=== PATIENT | male | born 1945 | race Two or more races ===

== ENCOUNTER → 2016-10-30 | Outpatient (CLI) | payer MEDICARE, MEDICAID ==
[~2016-10-30] MED LIST: JANUVIA25 MG ORAL; LISINOPRIL20 MG ORAL; METFORMIN HCL500 M1 ORAL; SIMVASTATIN10 MG ORAL; TRICOR145 MG ORAL; VITAMIN D1000 UNI1 ORAL
[2016-10-30 14:15] VITALS: BP 139/79
--- NOTE | 2016-10-30 21:27 | Consultation ---
DATE OF CONSULTATION: 10/30/2016 REFERRING PHYSICIAN: Lb Vasquez M.D. CHIEF COMPLAINT: Evaluation for screening colonoscopy evaluation and chronic GERD. HISTORY OF PRESENT ILLNESS: A very pleasant 71-year-old male with past medical history of hypertension, and diabetes was referred to us by Dr. Vasquez, apparently, the patient never had a colonoscopy at 71. The patient has some loose stools twice a day, but is most probably from his medication with chronic diabetes and no blood per rectum. No melena. The patient also had some acid reflux symptoms. PAST MEDICAL HISTORY: 1. Hypertension. 2. Hyperglycemia. 3. Diabetes. PAST SURGICAL HISTORY: knee surgery in 2013. MEDICATIONS: Please see medication reconciliation list. ALLERGIES: No known allergy. SOCIAL HISTORY: The patient denies any alcohol or IV drug abuse. He drinks coffee. Exercises regularly. PHYSICAL EXAMINATION: VITAL SIGNS: Temperature 97.9 degrees, blood pressure is 139/79, pulse 66, and respirations 20. HEENT: Normocephalic and atraumatic. Pale conjunctivae. Sclerae anitcteric. NECK: Supple. No lymphadenopathy. CARDIOVASCULAR: Regular rhythm. Plus S1 and S2. LUNGS: Clear breath sounds bilaterally. ABDOMEN: Bowel sounds are present. Soft and nontender. No rebound. No guarding. No peritoneal signs. EXTREMITIES: No cyanosis. No clubbing. No edema. ASSESSMENT AND PLAN: The patient is a 71-year-old male plan to do a screening colonoscopy. Also, we will plan to do endoscopy given chronic gastroesophageal reflux disease. PLAN: The patient was given instructions and prescriptions for the medication. The patient was explained the risks and benefits of procedure and he understood and agreed with plan for next week. I want to thank, Dr. Vasquez for this kind referral. Juan Marx M.D. DR: Kailey JOB#: [id number] CC:
== END | disposition home or self-care (01) ==
LOC: PAN 13:51
DX: I10 Essential (primary) hypertension (principal); E11.9 Type 2 diabetes mellitus without complications
CPT/HCPCS: 99201

== ENCOUNTER → 2016-11-21 | Day surgery (SDC) | payer MEDICARE, MEDICAID ==
[2016-11-21] VITALS (8 sets, daily range): BP systolic 126–143; BP diastolic 80–86
[~2016-11-21] VITALS: Ht 165.1 cm; Wt 61.2 kg
[~2016-11-21] MED LIST changes: +NS 550ML IV ONE; +Propofol 10mg/ml 20ml IV ONE
--- NOTE | 2016-11-21 09:38 | Pre-Procedure Note/Attestation ---
Pre-Procedure Note/Attestation Complete Prior to Procedure Planned Procedure: not applicable Procedure Narrative: egd/colon Indications for Procedure Pre-Operative Diagnosis: screening colon, GERD Attestation I attest that I discussed the nature of the procedure; its benefits; risks and complications; and alternatives (and the risks and benefits of such alternatives ), prior to the procedure, with the patient (or the patient's legal corporate sales representative). I attest that, if there was a reasonable possibility of needing a blood transfusion, the patient (or the patient's legal corporate sales representative) was given the [facility] standardized written summary, pursuant to the [place] Blood Safety Act ([place] Health and Safety Code # 1645, as amended). I attest that I re-evaluated the patient just prior to the surgery and that there has been no change in the patient's H&P, except as documented below: PEPE LIU Nov 21, 2016 09:38
--- NOTE | 2016-11-21 09:39 | Short Stay Surgery H&P ---
History of Present Illness History of Present Illness Chief Complaint see recent consult note HPI Raymundo Watts is a 71 year old male who was admitted on for Colon Screening,Gerd Medication History Scheduled Fenofibrate (Tricor), 145 MG ORAL DAILY, (Reported) Lisinopril (Lisinopril*), 20 MG ORAL DAILY, (Reported) Simvastatin (Zocor), Unknown Dose ORAL BEDTIME, (Reported) Sitagliptin* (Januvia*), 100 MG ORAL DAILY, (Reported) Plan Attestation Are the patient's medical conditions optimized for surgery? PEPE LIU Nov 21, 2016 09:39
--- NOTE | 2016-11-21 12:01 | Anethesia Preoperative Eval ---
Anesthesia Pre-op PMH/ROS General Date of Evaluation: Nov 21, 2016 Time of Evaluation: 11:43 Anesthesiologist: isabella ASA Score: ASA 3 Mallampati Score Class I : Soft palate, uvula, fauces, pillars visible Class II: Soft palate, uvula, fauces visible Class III: Soft palate, base of uvula visible Class IV: Only hard plate visible Mallampati Classification: Class II Surgeon: rylee Diagnosis: GERD/screening Surgical Procedure: egd/colonocopy Anesthesia History: none Allergies: Coded Allergies: No Known Allergies (Unverified , 11/21/16) Past Medical History Cardiovascular: Reports: HTN Gastrointestinal/Genitourinary: Reports: GERD Endocrine: Reports: DM Musculoskeletal/Integumentary: Reports: other - l. TKR Anesthesia Pre-op Phys. Exam Physician Exam Last Vital Signs Date Time Temp Pulse Resp B/P Pulse Ox O2 Delivery O2 Flow Rate FiO2 11/21/16 11:08 98.2 60 20 138/80 98 Room Air Airway Exam Mallampati Score: Class II Teeth: missing Anesthesia Pre-op A/P Risk Assessment & Plan Plan: propofol Status Change Before Surgery: Tyron Baker MD Nov 21, 2016 12:01
--- NOTE | 2016-11-21 12:02 | Immediate Post-Op Evaluation ---
Immediate Post-Op Evalulation Immediate Post-Op Evalulation Date of Evaluation: Nov 21, 2016 Time of Evaluation: 12:23 IV Fluids: 300 Blood Pressure Systolic: 130 Blood Pressure Diastolic: 81 Pulse Rate: 70 Respiratory Rate: 20 O2 Sat by Pulse Oximetry: 97 Temperature (Fahrenheit): 98 Pain Score (1-10): 0 Nausea: No Vomiting: No Complications none Patient Status: awake, patent, none Hydration Status: adequate Tyron Alfaro MD Nov 21, 2016 12:02
--- NOTE | 2016-11-21 12:03 | 48 Hour Post Anesthesia Eval ---
Post Anesthesia Evaluation Date of Evaluation: Nov 21, 2016 Time of Evaluation: 12:50 Blood Pressure Systolic: 134 0: 85 Pulse Rate: 55 Respiratory Rate: 16 Temperature (Fahrenheit): 98 O2 Sat by Pulse Oximetry: 99 Airway: patent Nausea: No Vomiting: No Pain Intensity: 0 Hydration Status: adequate Cardiopulmonary Status: stable Mental Status/LOC: patient returned to baseline Follow-up Care/Observations: n/a Post-Anesthesia Complications: tolerated well Follow-up care needed: ready to discharge Tyron Alfaro MD Nov 21, 2016 12:03
--- NOTE | 2016-11-21 12:11 | Endoscopy Procedure Note ---
Endoscopy Procedure Note Indication for Procedure: screening colon, GERD Procedures Performed: EGD, colonoscopy Operative Findings/Diagnosis: gastritis,hemorrhoids,3 polyps Specimen: yes Pt Tolerated Procedure Well: Yes Estimated Blood Loss: none Anesthesiologist: isabella Anesthesia: MAC Implant(s) used?: No 50 yrs or older w/o bx or poly: No 10yrs. F/U not recommended: Yes If not recommended, why?: Above average risk 10 yrs. F/U needed: Yes 18 years or older w/prev. colo: No PEPE LIU Nov 21, 2016 12:11
--- NOTE | 2016-11-21 19:59 | Procedure Note ---
DATE OF PROCEDURE: 11/21/2016 SURGEON: Juan Marx M.D. PROCEDURE: Upper endoscopy with biopsy and colonoscopy with biopsy and snare polypectomy. ANESTHESIOLOGIST: Tyron Alfaro M.D. INSTRUMENT: Olympus adult flexible upper endoscope and colonoscope. INDICATION: Screening colonoscopy evaluation and GERD. REASON FOR PROCEDURE: The procedure, risks, benefits, and possible consequences, including hemorrhage, aspiration, perforation and infection, and alternative treatments, were explained to the patient/legal guardian by Dr. Juan Marx and the patient/legal guardian understood and accepted these risks. DESCRIPTION OF PROCEDURE: After informed consent was obtained and the patient was adequately sedated, first Olympus upper endoscope was advanced from mouth into the second portion of duodenum and retroflexion was performed in the stomach. The patient had evidence of diffuse gastritis. Random biopsy from antrum of the stomach was obtained to rule out H. pylori infection. At this time, the upper endoscope was retrieved and the patient was turned over for colonoscopy. First, a rectal examination was performed, which was positive for internal hemorrhoid. Then, the scope was advanced from the rectum into the cecum and then subsequently into the terminal ileum. Quality of prep was very good. The patient had flat-looking terminal ileum mucosa. In the colon, there was total of three polyps. There was one large sessile polyp in the sigmoid colon, roughly measured about 1 cm, which was removed with the snare polypectomy technique. There were two diminutive polyps in the rectum area above the dentate line, which was removed with cold biopsy forceps technique. There was no further polyp seen. The patient had some evidence of scattered sigmoid diverticulosis. Retroflexion in the rectum showed evidence of large internal hemorrhoids. SUMMARY OF FINDINGS: 1. Gastritis, status post biopsy. 2. Total of three colonic polyps removed, see above for details. 3. Diverticulosis. 4. Internal hemorrhoids. RECOMMENDATIONS: 1. Follow up biopsies and treat accordingly. 2. Given three polyps and this large polyp in the sigmoid, we recommend repeat colonoscopy in three years. Juan Marx M.D. DR: GEORGE JOB#: [id number] CC:
== END | disposition home or self-care (01) ==
LOC: GAS 09:30
DX: Z12.11 Encounter for screening for malignant neoplasm of colon (principal); D12.5 Benign neoplasm of sigmoid colon; K62.1 Rectal polyp; K64.8 Other hemorrhoids; K57.30 Diverticulosis of large intestine without perforation or abscess without bleeding; K21.9 Gastro-esophageal reflux disease without esophagitis; K29.50 Unspecified chronic gastritis without bleeding; B96.81 Helicobacter pylori [H. pylori] as the cause of diseases classified elsewhere; I10 Essential (primary) hypertension; E11.9 Type 2 diabetes mellitus without complications; Z96.659 Presence of unspecified artificial knee joint
CPT/HCPCS: 43239; 45380; 45385; 82962; J2704; J7040; 94003; 94150

== ENCOUNTER → 2016-12-08 | Outpatient (CLI) | payer MEDICARE, MEDICAID ==
[~2016-12-08] MED LIST changes: -NS 550ML IV ONE; -Propofol 10mg/ml 20ml IV ONE
--- NOTE | 2016-12-08 16:06 | GI Progress Note ---
Assessment/Plan Problems: (1) Colonic polyp ICD Codes: K63.5 - Polyp of colon SNOMED: 54910066 (2) Diverticulosis ICD Codes: K57.90 - Diverticulosis of intestine, part unspecified, without perforation or abscess without bleeding SNOMED: 089316036 (3) Helicobacter pylori (H. pylori) ICD Codes: A04.8 - Other specified bacterial intestinal infections SNOMED: 0345561 Status: stable Status Narrative Seen with Dr. Marx. Assessment/Plan Rx for HP >> Amoxicillin + Biaxin + Omeprazole RTC x 3 months for retest repeat colon x 3 years Subjective Gastrointestinal/Abdominal: Reports: no symptoms Objective T 98.3 BP 121/72 P 77 96 RA Denies any weight loss. General Appearance: no apparent distress, alert Cardiovascular: normal rate Respiratory/Chest: normal breath sounds, no respiratory distress Abdominal Exam: normal bowel sounds, non tender, soft Extremities: normal range of motion, non-tender, normal inspection Objective Endoscopy Procedure Note Indication for Procedure: screening colon, GERD Procedures Performed: EGD, colonoscopy Operative Findings/Diagnosis: gastritis,hemorrhoids,3 polyps PEPE MARX - Nov 21, 2016 12:11 [place] N.P. Dec 08, 2016 16:06
[2016-12-08 16:10] VITALS: BP 121/72
== END | disposition home or self-care (01) ==
LOC: PAN 13:33
DX: K63.5 Polyp of colon (principal); K57.90 Diverticulosis of intestine, part unspecified, without perforation or abscess without bleeding; A04.8 Other specified bacterial intestinal infections
CPT/HCPCS: 99211